=== PATIENT | female | born 1945 | race Caucasian/White ===

== ENCOUNTER → 2018-02-21 | Outpatient (CLI) | payer MEDICARE, OTHER | END | disposition home or self-care (01) | LOC: CVU 10:58 | PROVIDERS: ATTEND Internal Medicine Cardiovascular Disease | DX: I65.23 Occlusion and stenosis of bilateral carotid arteries (principal); I10 Essential (primary) hypertension | CPT/HCPCS: 93880 ==

== ENCOUNTER → 2018-04-05 | Outpatient (CLI) | payer MEDICARE, OTHER | END | disposition home or self-care (01) | LOC: CARD 12:21 | PROVIDERS: ATTEND Physician Assistant Medical | DX: I27.20 Pulmonary hypertension, unspecified (principal); I73.9 Peripheral vascular disease, unspecified; R06.00 Dyspnea, unspecified | CPT/HCPCS: 94010; 94726; 94729 ==

== ENCOUNTER → 2018-04-11 | Outpatient (CLI) | payer MEDICARE, OTHER | END | disposition home or self-care (01) | LOC: CVU 09:50 | PROVIDERS: ATTEND Physician Assistant Medical | DX: I70.208 Unspecified atherosclerosis of native arteries of extremities, other extremity (principal); I10 Essential (primary) hypertension; E78.5 Hyperlipidemia, unspecified; I27.20 Pulmonary hypertension, unspecified; Z87.891 Personal history of nicotine dependence | CPT/HCPCS: 93922 ==

== ENCOUNTER → 2018-05-12 | Outpatient (CLI) | payer MEDICARE, OTHER ==
[~2018-05-12] VITALS: Ht 162.6 cm; Wt 86.4 kg
[~2018-05-12] MED LIST: AMLO2.5T3 PO; ASCO10004 PO; ASPI-496 PO; BIOT25005 PO; LAMO100T63 PO; MAGN250T2 PO; MULT1TAB60 PO; ROSU20TA PO
[2018-05-12 12:11] LABS: ANION GAP 8 mmol/L (5-15); CALCIUM 9.7 mg/dL (8.5-10.1); CHLORIDE 109 mmol/L (98-107); CREATININE 0.89 mg/dL (0.55-1.02)
[2018-05-12 12:17] LABS: BASOPHILS # (AUTO) 0.03 x10^3/uL (0-0.1); BASOPHILS % (AUTO) 0 % (0-1); EOSINOPHILS # (AUTO) 0.13 x10^3/uL (0-0.4); EOSINOPHILS % (AUTO) 2 % (1-7); LYMPHOCYTES # (AUTO) 1.35 x10^3/uL (1-3.4); LYMPHOCYTES % (AUTO) 17 % (22-44); MD NO; MEAN CORPUSCULAR HEMOGLOBIN 32.7 pg (27.0-34.8); MEAN CORPUSCULAR HGB CONC 34.3 g/dL (32.4-35.8); MEAN CORPUSCULAR VOLUME 95.4 fL (80-100); MEAN PLATELET VOLUME 8.8 fL (7.4-10.4); MONOCYTES # (AUTO) 0.76 x10^3/uL (0.2-0.8); MONOCYTES % (AUTO) 10 % (2-9); NEUTROPHILS # (AUTO) 5.71 x10^3/uL (1.8-6.8); NEUTROPHILS % (AUTO) 72 % (42-75); PLATELET COUNT 197 x10^3/uL (130-400); RED BLOOD COUNT 4.81 x10^6/uL (3.82-5.3); RED CELL DISTRIBUTION WIDTH 13.2 % (9.6-15.2)
== END | disposition home or self-care (01) ==
LOC: STAR 11:10
PROVIDERS: ATTEND Surgery
DX: Z01.818 Encounter for other preprocedural examination (principal)
CPT/HCPCS: 36415; 80048; 85025

== ENCOUNTER → 2018-05-19 | Day surgery (SDC) | payer MEDICARE, OTHER ==
[~2018-05-19] VITALS: Ht 162.6 cm; Wt 88.3 kg
[~2018-05-19] MED LIST changes: +FENTANYL PF 100 MCG/2ML ONE; +FLUMAZENIL 0.1 MG/1 ML, 5ML ONE; +HEPARIN 1,000 UNITS/ML, 10ML ONE; +LIDOCAINE-MPF 2%, 2ML ONE; +MIDAZOLAM 1 MG/ML, 5ML ONE; +NALOXONE 1 MG/ML, 2ML ONE; +NITROGLYCERIN 5 MG/ML, 10ML ONE; +PROTAMINE SULFATE 10 MG/ML, 25ML ONE
[2018-05-19 12:09] VITALS: BP 136/78
== END | disposition home or self-care (01) ==
LOC: OUT 10:50
PROVIDERS: ATTEND Surgery
DX: Z02.9 Encounter for administrative examinations, unspecified (principal)
CPT/HCPCS: J1644; J2250; J2720; J3010; J3490; J2310

== ENCOUNTER 2018-05-24 10:31 | Observation (INO) | payer MEDICARE, OTHER ==
[~2018-05-24] VITALS: Ht 162.6 cm; Wt 88.2 kg
[~2018-05-24 10:31] MED LIST changes: -FENTANYL PF 100 MCG/2ML ONE; -FLUMAZENIL 0.1 MG/1 ML, 5ML ONE; -HEPARIN 1,000 UNITS/ML, 10ML ONE; -LIDOCAINE-MPF 2%, 2ML ONE; -MIDAZOLAM 1 MG/ML, 5ML ONE; -NALOXONE 1 MG/ML, 2ML ONE; -NITROGLYCERIN 5 MG/ML, 10ML ONE; -PROTAMINE SULFATE 10 MG/ML, 25ML ONE
[2018-05-24 11:17] VITALS: BP 149/85
[2018-05-24] MEDS ORDERED: D5%-0.45% NACL 1,000 ML IV SCH (11:19)
[2018-05-24] MEDS ORDERED: NITROGLYCERIN 5 MG/ML, 10ML ONE (12:10)
[2018-05-24] MEDS ORDERED: FENTANYL PF 100 MCG/2ML ONE (12:10)
[2018-05-24] MEDS ORDERED: MIDAZOLAM 1 MG/ML, 5ML ONE (12:10)
[2018-05-24] MEDS ORDERED: FLUMAZENIL 0.1 MG/1 ML, 5ML ONE (12:10)
[2018-05-24] MEDS ORDERED: HEPARIN 1,000 UNITS/ML, 10ML ONE (12:10)
[2018-05-24] MEDS ORDERED: PROTAMINE SULFATE 10 MG/ML, 25ML ONE (12:10)
[2018-05-24] MEDS ORDERED: NALOXONE 1 MG/ML, 2ML ONE (12:10)
[2018-05-24] MEDS ORDERED: VISIPAQUE 270 MG/ML, 150ML BOTTLE ONE (13:00)
[2018-05-24] MEDS ORDERED: SODIUM CHLORIDE 0.9% 1,000 ML IV SCH (15:00)
== END 2018-05-24 17:05 | disposition home or self-care (01) ==
LOC: OUT 10:31 → ORIP 14:03
PROVIDERS: ADMIT Surgery; ATTEND Surgery
DX: I77.1 Stricture of artery (principal); I25.10 Atherosclerotic heart disease of native coronary artery without angina pectoris; E78.00 Pure hypercholesterolemia, unspecified; I10 Essential (primary) hypertension; E66.9 Obesity, unspecified; E78.2 Mixed hyperlipidemia; I27.20 Pulmonary hypertension, unspecified
CPT/HCPCS: 37236; 75710; 99156; 99157; C1725; C1751; C1769; C1876; C1894; G0378; J1644; J2250; J2720; J3010; Q9966; J2310

== ENCOUNTER → 2019-02-01 | Outpatient (CLI) | payer MEDICARE, OTHER ==
[~2019-02-01] MED LIST changes: +ALIR75PE INJ; -AMLO2.5T3 PO; +AMLO2.5T5 PO; -ROSU20TA PO; +ROSU20TA2 PO
[2019-02-01 12:34] LABS: BASOPHILS # (AUTO) 0.04 x10^3/uL (0-0.1); BASOPHILS % (AUTO) 1 % (0-1); EOSINOPHILS # (AUTO) 0.25 x10^3/uL (0-0.4); EOSINOPHILS % (AUTO) 3 % (1-7); LYMPHOCYTES # (AUTO) 1.38 x10^3/uL (1-3.4); LYMPHOCYTES % (AUTO) 18 % (22-44); MD NO; MEAN CORPUSCULAR HGB CONC 32.8 g/dL (32.4-35.8); MEAN CORPUSCULAR VOLUME 94.5 fL (80-100); MEAN PLATELET VOLUME 7.8 fL (7.4-10.4); MONOCYTES # (AUTO) 0.58 x10^3/uL (0.2-0.8); MONOCYTES % (AUTO) 8 % (2-9); NEUTROPHILS # (AUTO) 5.22 x10^3/uL (1.8-6.8); NEUTROPHILS % (AUTO) 70 % (42-75); PLATELET COUNT 278 x10^3/uL (130-400); RED BLOOD COUNT 4.59 x10^6/uL (3.82-5.3); RED CELL DISTRIBUTION WIDTH 13.8 % (9.6-15.2)
[2019-02-01 12:44] LABS: INTERNATIONAL NORMALIZED RATIO 0.97 (0.93-1.1); PROTHROMBIN TIME 10.2 Seconds (9.6-11.5)
[2019-02-01 12:45] LABS: ANION GAP 6 mmol/L (5-15); CALCIUM 9.9 mg/dL (8.5-10.1); CHLORIDE 109 mmol/L (98-107); CREATININE 0.85 mg/dL (0.55-1.02)
[2019-02-01 12:58] LABS: MICROSCOPIC NOT IND
== END | disposition home or self-care (01) ==
LOC: STAR 11:23
PROVIDERS: ATTEND Student in an Organized Health Care Education/Training Program
DX: Z01.818 Encounter for other preprocedural examination (principal); N13.30 Unspecified hydronephrosis; N28.9 Disorder of kidney and ureter, unspecified
CPT/HCPCS: 36415; 80048; 81003; 85025; 85610; 85730; 87086; 93005

== ENCOUNTER 2020-12-11 10:37 | Outpatient (CLI) | payer MEDICARE, OTHER ==
[~2020-12-11 10:37] MED LIST changes: +ASCO100018 PO; -ASCO10004 PO; +DOCU-131 PO; +MULT-449 PO; -MULT1TAB60 PO; +OXYB10TA6 PO; +OXYC5CAP2 PO; +PHEN100T90 PO; +POLY17PO5 PO
== END 2020-12-11 23:59 | disposition home or self-care (01) ==
LOC: CFH 10:37
PROVIDERS: ATTEND Nurse Practitioner
DX: Z12.31 Encounter for screening mammogram for malignant neoplasm of breast (principal); M85.80 Other specified disorders of bone density and structure, unspecified site; Z78.0 Asymptomatic menopausal state
CPT/HCPCS: 77063; 77067; 77080